=== PATIENT | female | born 2000 | race Caucasian/White ===

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

== ENCOUNTER → 2022-09-08 | Outpatient (CLI) | payer BC, OTHER ==
[~2022-09-08] MED LIST changes: +ESTA0.25; +FAMO20TA5; +LINZ290C; +PEPC1TAB5 PO
== END ==
LOC: M LABSMTC 10:41
PROVIDERS: ATTEND Anesthesiology
DX: Z01.812 Encounter for preprocedural laboratory examination (principal)

== ENCOUNTER 2022-09-11 10:46 | Day surgery (SDC) | payer BC ==
[~2022-09-11] VITALS: Ht 167.6 cm; Wt 69.9 kg
[~2022-09-11 10:46] MED LIST changes: +NS 1,000 ML IV ONE
[2022-09-11] MEDS ORDERED: propofoL 200 MG/20 ML VIAL As Ordered ONE (12:19)
[2022-09-11] MEDS ORDERED: LIDOCAINE 2% 100MG/5ML SDV (FOR ANES.) As Ordered ONE (12:19)
[2022-09-11] MEDS ORDERED: fentaNYL 100 MCG/2 ML INJECTION As Ordered ONE (12:19)
[2022-09-11 12:56] VITALS: BP 120/71
== END 2022-09-11 13:03 | disposition home or self-care (01) ==
LOC: M OPP 10:46
PROVIDERS: ATTEND Internal Medicine Gastroenterology
DX: K58.1 Irritable bowel syndrome with constipation (principal); K21.9 Gastro-esophageal reflux disease without esophagitis; R12 Heartburn; Z88.0 Allergy status to penicillin; Z79.899 Other long term (current) drug therapy; Z80.0 Family history of malignant neoplasm of digestive organs; Z80.8 Family history of malignant neoplasm of other organs or systems; Z82.49 Family history of ischemic heart disease and other diseases of the circulatory system
CPT/HCPCS: 43235; 45378; J3010

== ENCOUNTER → 2023-01-08 | Outpatient (CLI) | payer BC ==
[~2023-01-08] MED LIST changes: -NS 1,000 ML IV ONE
== END ==
LOC: M RAD 13:55
PROVIDERS: ATTEND Physician Assistant
DX: R10.2 Pelvic and perineal pain (principal)

== ENCOUNTER → 2024-02-23 | Outpatient (CLI) | payer BC ==
[2024-02-23 18:32] LABS: HEMATOCRIT 36.8 % (36.0-47.0); HEMOGLOBIN 12.3 g/dl (12.0-15.5); MEAN CORPUSCULAR HEMOGLOBIN 29.1 pg (27.0-33.0); MEAN CORPUSCULAR HGB CONC 33.4 g/dl (32.0-36.5); MEAN CORPUSCULAR VOLUME 87.2 fl (80.0-96.0); PLATELET COUNT, AUTOMATED 320 10^3/uL (150-450); RED BLOOD COUNT 4.22 10^6/uL (4.00-5.40)
[2024-02-23 19:09] LABS: HIV 1&2 SCREEN NEGATIVE (NEGATIVE)
[2024-02-23 19:16] LABS: HEPATITIS C VIRUS ABY INDEX 0.08 INDEX (<0.8)
[2024-02-23 20:37] LABS: GC DNA AMPLIFICATION NEGATIVE (NEGATIVE)
== END ==
LOC: M PLALAB 15:29
PROVIDERS: ATTEND Nurse Practitioner Women's Health
DX: Z34.01 Encounter for supervision of normal first pregnancy, first trimester (principal); Z3A.11 11 weeks gestation of pregnancy

== ENCOUNTER → 2024-02-23 | Outpatient (REF) | payer BC | LOC: M PLALAB 16:50 | PROVIDERS: ATTEND Nurse Practitioner Women's Health | DX: Z53.9 Procedure and treatment not carried out, unspecified reason (principal) ==

== ENCOUNTER → 2024-04-26 | Outpatient (CLI) | payer BC | LOC: M WHC 13:36 | PROVIDERS: ATTEND Specialist | DX: Z34.82 Encounter for supervision of other normal pregnancy, second trimester (principal) ==

== ENCOUNTER → 2024-06-22 | Outpatient (CLI) | payer BC ==
[2024-06-22 18:30] LABS: HEMATOCRIT 33.2 % (36.0-47.0); HEMOGLOBIN 10.6 g/dl (12.0-15.5); MEAN CORPUSCULAR HEMOGLOBIN 28.6 pg (27.0-33.0); MEAN CORPUSCULAR HGB CONC 31.9 g/dl (32.0-36.5); MEAN CORPUSCULAR VOLUME 89.7 fl (80.0-96.0); PLATELET COUNT, AUTOMATED 315 10^3/uL (150-450); WHITE BLOOD COUNT 13.8 10^3/uL (4.0-10.0)
[2024-06-22 18:39] LABS: GLUCOSE CHALLENGE TEST 1 HOUR 74 MG/DL (LESS THAN 140)
[2024-06-22 18:54] LABS: GC DNA AMPLIFICATION NEGATIVE (NEGATIVE)
[2024-06-22 19:14] LABS: HIV 1&2 SCREEN NEGATIVE (NEGATIVE)
[2024-06-22 19:22] LABS: HEPATITIS C VIRUS ABY INDEX 0.05 INDEX (<0.8)
== END ==
LOC: M PLALAB 14:17
PROVIDERS: ATTEND Obstetrics & Gynecology
DX: O09.292 Supervision of pregnancy with other poor reproductive or obstetric history, second trimester (principal)

== ENCOUNTER → 2024-07-21 | Outpatient (CLI) | payer BC | LOC: M RAD 15:44 | PROVIDERS: ATTEND Obstetrics & Gynecology | DX: Z34.82 Encounter for supervision of other normal pregnancy, second trimester (principal) ==

== ENCOUNTER → 2024-08-22 | Outpatient (REF) | payer BC | LOC: M SFHCWAGY 14:33 | PROVIDERS: ATTEND Obstetrics & Gynecology | DX: Z36.89 Encounter for other specified antenatal screening (principal); Z3A.37 37 weeks gestation of pregnancy ==

== ENCOUNTER 2024-09-08 11:42 | Inpatient (IN) | payer BC ==
[2024-09-08] VITALS (21 sets, daily range): BP systolic 119–168; BP diastolic 65–107; O2SAT 97
[~2024-09-08] VITALS: Ht 167.6 cm; Wt 77.2 kg
[2024-09-08] MEDS ORDERED: PRENTAB9 PO (12:00)
[2024-09-08] MEDS ORDERED: CLINDAMYCIN 900 MG in IV 1 EA IV SCH (13:20)
[2024-09-08] MEDS ORDERED: LIDOCAINE 1% MDV 20ML VIAL INFIL PRN (13:20)
[2024-09-08] MEDS: ceFAZolin SOD 2 GM in IV 1 EA IV STA (14:07)
[2024-09-08 14:09] LABS: HEMATOCRIT 34.9 % (36.0-47.0); HEMOGLOBIN 11.4 g/dl (12.0-15.5); MEAN CORPUSCULAR HEMOGLOBIN 26.1 pg (27.0-33.0); MEAN CORPUSCULAR HGB CONC 32.7 g/dl (32.0-36.5); PLATELET COUNT, AUTOMATED 326 10^3/uL (150-450); RED BLOOD COUNT 4.36 10^6/uL (4.00-5.40); WHITE BLOOD COUNT 13.1 10^3/uL (4.0-10.0)
[2024-09-08] MEDS: LR 1,000 ML IV ONE (14:52)
[2024-09-08 15:07] LABS: HIV 1&2 SCREEN NEGATIVE (NEGATIVE)
[2024-09-08 15:16] LABS: HEPATITIS C VIRUS ABY INDEX 0.19 INDEX (<0.8)
[2024-09-08] MEDS ORDERED: ONDANSETRON 4MG 2ML VIAL IV PRN (15:35)
[2024-09-08] MEDS ORDERED: diphenhydrAMINE 50MG/ML VIAL IV PRN (15:35)
[2024-09-08] MEDS ORDERED: NALOXONE INJ 0.4MG/1ML VIAL IV PRN (15:35)
[2024-09-08] MEDS ORDERED: EPIDURAL/PCA KEYS XX PRN (15:35)
[2024-09-08] MEDS ORDERED: LR 500 ML IV PRN (15:35)
[2024-09-08] MEDS ORDERED: ePHEDrine SULFATE 25 MG/5 ML(5MG/ML) SYRINGE IVP PRN (15:35)
[2024-09-08] MEDS ORDERED: OXYTOCIN DRIP 30 UNITS in IV 1 EA IV PRN (17:00)
[2024-09-08] MEDS: FENTANYL/ROPIVACAINE/NACL BAG 100 ML EPIDURAL SCH (18:43)
[2024-09-08] MEDS ORDERED: RHOGAM 300MCG (1500IU) INJ IM SCH (18:55)
[2024-09-08] MEDS ORDERED: METHYLERGONOVINE MALEATE 0.2 MG TAB PO PRN (18:55)
[2024-09-08] MEDS ORDERED: IBUPROFEN 800 MG TAB PO PRN (18:55)
[2024-09-08] MEDS ORDERED: MOM 30ML SUSPENSION UDC PO PRN (18:55)
[2024-09-08] MEDS ORDERED: ACETAMINOPHEN 325 MG TAB PO PRN (18:55)
[2024-09-08] MEDS ORDERED: CALCIUM CARBONATE 500 MG CHEW U/D PO PRN (18:55)
[2024-09-08] MEDS ORDERED: ANUSOL HC CREAM 30GM TOP PRN (18:55)
[2024-09-08] MEDS ORDERED: OXYTOCIN DRIP 30 UNITS in IV 1 EA IV SCH (18:55)
[2024-09-08] MEDS ORDERED: IBUPROFEN 600MG TAB PO PRN (18:55)
[2024-09-08] MEDS: METHYLERGONOVINE MALEATE 0.2MG/ML 1ML VIAL IM PRN (19:22)
[2024-09-08] MEDS: TRANEXAMIC ACID INJection 1,000 MG in NS 100 ML IV PRN (19:22)
[2024-09-08] MEDS ORDERED: ceFAZolin SOD 1 GM in DEXTROSE 5% (D5W) ADV/MINI-BAG 50 ML IV SCH ×2 (21:35→22:00)
[2024-09-08] MEDS: DIBUCAINE 1% OINTMENT 30GM TOP PRN (22:11)
[2024-09-09 06:00] VITALS: BP 122/82; O2SAT 98
[2024-09-09] MEDS: PRENATAL VITAMINS CHEWABLE TABLET PO SCH (08:43)
[2024-09-09 12:08] LABS: BASO % 0.2 % (0.0-1.0); EOS # 0.1 10^3/uL (0.0-0.5); EOS % 0.4 % (0.0-3.0); HEMATOCRIT 30.2 % (36.0-47.0); HEMOGLOBIN 9.8 g/dl (12.0-15.5); LYMPH # 1.6 10^3/uL (1.5-5.0); LYMPH % 9.3 % (24.0-44.0); MEAN CORPUSCULAR HEMOGLOBIN 26.6 pg (27.0-33.0); MEAN CORPUSCULAR HGB CONC 32.5 g/dl (32.0-36.5); MEAN CORPUSCULAR VOLUME 81.8 fl (80.0-96.0); MONO # 0.8 10^3/uL (0.0-0.8); NEUTROPHILS # 14.1 10^3/uL (1.5-8.5); NEUTROPHILS % 84.4 % (36.0-66.0); PLATELET COUNT, AUTOMATED 308 10^3/uL (150-450); RED BLOOD COUNT 3.69 10^6/uL (4.00-5.40); WHITE BLOOD COUNT 16.7 10^3/uL (4.0-10.0)
[2024-09-09 12:28] LABS: URIC ACID 5.2 MG/DL (3.1-7.8)
[2024-09-09 12:31] LABS: ALT/SGPT 16 U/L (7.0-40); AST/SGOT 26 U/L (<34); BILIRUBIN,TOTAL 0.5 MG/DL (0.3-1.2); CREATININE FOR GFR 0.51 MG/DL (0.55-1.30); GLOMERULAR FILTRATION RATE > 60.0 (>60); LDH LACTATE DEHYDROGENASE 301 U/L (120-246)
[2024-09-09 18:00] VITALS: BP 140/91; O2SAT 98
[2024-09-09] MEDS: ACETAMINOPHEN 500 MG TAB PO PRN (20:19)
[2024-09-10 05:34] VITALS: BP 112/60; O2SAT 98
[2024-09-10] MEDS: DOCUSATE SODIUM 100MG CAPSULE PO PRN (08:08)
[2024-09-10] MEDS: MEASLES,MUMPS,RUBELLA VACCINE INJ (MMR-II) SC.IMMUN ONE (09:00)
[2024-09-10] MEDS ORDERED: ACET-683 PO (10:26)
[2024-09-10] MEDS ORDERED: IBUP-1022 PO (10:26)
== END 2024-09-10 14:30 | disposition home or self-care (01) | DRG 560 ==
LOC: M LDO 11:42 → EEVIPCON 12:05 → M LDI 12:05 → M OBS 20:04
PROVIDERS: ADMIT Obstetrics & Gynecology; ATTEND Obstetrics & Gynecology
PROC: 10E0XZZ Delivery of Products of Conception, External Approach (ICD-10-PCS; principal; 2024-09-08)
PROC: 0HQ9XZZ Repair Perineum Skin, External Approach (ICD-10-PCS; 2024-09-08)
DX: O70.0 First degree perineal laceration during delivery (principal); Z37.0 Single live birth; Z3A.39 39 weeks gestation of pregnancy